=== PATIENT | female | born 1965 | race Two or more races ===

== ENCOUNTER 2025-06-02 16:44 | Emergency (ER) | payer OTHER ==
[~2025-06-02] VITALS: Ht 162.6 cm; Wt 68.2 kg
--- NOTE | 2025-06-02 16:51 | ECG ---
[facility] Test Date: 2025-06-02 Test Time: 16:50:18 Pat Name: ALEXANDRE LINDSYA Department: [facility] ED Patient ID: [id number] Room: Gender: F [employer] Specialist: MR MANNINGB: 1965 Requested By: FARIDEH MOTLEY Order Number: [id number] Reading MD: Joe Taylor Measurements Intervals Whitt Rate: 93 P: 47 WY: 126 QRS: 66 QRSD: 96 T: 42 QT: 363 QTc: 452 Interpretive Statements Sinus rhythm Low voltage, precordial leads RSR' in V1 or V2, right VCD or RVH Electronically Signed On 06-04-2025 15:03:06 PST by Joe Taylor Please click the below link to view image of tracing.
[2025-06-02 17:02] LABS: Hematocrit 49.1 % (36.0-46.0); Hemoglobin 16.6 g/dL (12.2-16.2); Mean Corpuscular Hemoglobin 33.5 pg (28.0-32.0); Mean Corpuscular Volume 98.9 fL (80.0-100.0); Nucleated Red Blood Cells % 0.1 %
[2025-06-02 17:09] LABS: Potassium 3.7 mmol/L (3.5-5.1); Sodium 141 mmol/L (136-145)
[2025-06-02 17:10] LABS: Anion Gap 12 (5-15); Calcium 10.1 mg/dL (8.7-10.4); Carbon Dioxide 22 mmol/L (20-31)
[2025-06-02 17:14] LABS: Chloride 107 mmol/L (98-107)
[2025-06-02 17:15] LABS: BUN/Creatinine Ratio 15.0 (10.0-20.0); Blood Urea Nitrogen 12 mg/dL (9-23)
[2025-06-02 17:20] LABS: Glucose 113 mg/dL (74-106)
--- NOTE | 2025-06-02 17:21 | DVH ---
CHEST RADIOGRAPH Indication: CP Technique: Single frontal view of the chest was obtained Comparison: None FINDINGS: Lines and Tubes: None Lungs: No focal consolidation. Pleura: No effusion. No pneumothorax. Cardiomediastinal contours: Unremarkable Bones: No acute osseous abnormality. IMPRESSION: No acute cardiopulmonary disease.
[2025-06-02 19:08] LABS: Alanine Aminotransferase 21 U/L (7-40); Alkaline Phosphatase 90 U/L (46-116); Anion Gap 11 (5-15); BUN/Creatinine Ratio 17.9 (10.0-20.0); Bilirubin, Total 0.8 mg/dL (0.2-1.0); Blood Urea Nitrogen 15 mg/dL (9-23); Calcium 10.2 mg/dL (8.7-10.4); Carbon Dioxide 24 mmol/L (20-31); Glucose 92 mg/dL (74-106); Potassium 3.8 mmol/L (3.5-5.1); Sodium 144 mmol/L (136-145); Total Protein 7.9 g/dL (5.7-8.2)
[2025-06-02 19:20] LABS: Albumin 5.1 g/dL (3.2-4.8); Chloride 109 mmol/L (98-107)
--- NOTE | 2025-06-02 19:38 | ED.PDOC ---
History of Present Illness HPI Comments 59-year-old female presents with spouse for chief complaint of hypertension. Patient endorses on her blood pressure being elevated all day, today. Significant history for hypertension, but patient reports on not having medications for over the past 6 months after being weaned off by her PCP, due to previous episodes of hypotension. Blood pressure upon arrival to ED triage was 192/122. Patient reports associated headache and shortness of breath. Denies any chest pain or further acute symptoms. She also reports on having recent life stressors, currently. Chief Complaint: High Blood Pressure Time Seen by MD: 18:30 Reviewed Notes: Nurses Notes Allergies: Uncoded Allergies: DILAUDID (Allergy, Unknown, 06/02/25) VICODINE (Allergy, Unknown, 06/02/25) Home Meds Active Scripts Amlodipine Besylate (Amlodipine Besylate) 5 Mg Tab, 1 TAB PO DAILY, #90 TAB 3 Refills Prov:TROY REYNOLDS MD 06/02/25 Information Source: Patient Mode of Arrival: Ambulatory Severity: Moderate Timing: Hours Duration: Since onset Prehospital treatment: None Past Medical History PAST MEDICAL HISTORY: HTN (Unmedicated) Surgical History: Denies all surgeries ARBORIST REPRESENTATIVE History: Denies all ARBORIST REPRESENTATIVE Hx Family History Family History: Unknown Social History Smoker: Non-Smoker Alcohol: Denies ETOH Use Drugs: Denies Drug Use Lives In: Home All Other Systems: Reviewed and Negative (Comprehensive review of systems are negative unless otherwise stated in HPI) Physical Exam General Appearance: No Apparent Distress, Normal HEENT: Normal ENT Inspection, Pharynx Normal, TMs Normal Neck: Full Range of Motion, Non-Tender, Normal, Normal Inspection Respiratory: Chest Non-Tender, Lungs Clear, No Accessory Muscle Use, No Respiratory Distress, Normal Breath Sounds Cardiovascular: No Edema, No JVD, No Murmur, No Gallop, Normal Peripheral Pulses, Regular Rate/Rhythm Breast Exam: Deferred Gastrointestinal: No Organomegaly, Non Tender, No Pulsatile Mass, Normal Bowel Sounds, Soft Genitalia: Deferred Pelvic: Deferred Rectal: Deferred Extremities: No calf tenderness, Normal capillary refill, Normal inspection, Normal range of motion, Non-tender, No pedal edema Musculoskeletal : Apperance: Normal Neurologic: Alert, embroidery cutter II-XII nml as Tested, No Motor Deficits, Normal Affect, Normal Mood, No Sensory Deficits Cerebellar Function: Normal Reflexes: Normal Skin: Dry, Normal Color, Warm Lymphatic: No Adenopathy Was a procedure done? Was a procedure done?: No EKG EKG : Pulse Rate (adult): 93 [place]: Normal Cardiac Rhythm: NSR Block: None Hypertrophy: None ST: Normal Differential Dx Considerations may include: Hypertensive emergency, medication noncompliance, dehydration, electrolyte imbalance, among others X-Ray, Labs, Meds, VS Vital Signs Date Time Temp Pulse Resp B/P (MAP) Pulse Ox O2 Delivery O2 Flow Rate FiO2 06/02/25 20:06 97.8 76 16 118/76 (90) 97 97.8 06/02/25 20:06 76 16 97 Room Air 06/02/25 19:38 93 06/02/25 19:00 117/89 06/02/25 18:27 118/76 06/02/25 17:27 175/98 06/02/25 16:50 98.5 104 18 192/122 96 98.5 Lab Test 06/02/25 19:45 06/02/25 18:05 06/02/25 16:55 Range/Units Troponin I High Sensitivity 8 5 4 </=34 ng/L Sodium Level 144 141 136-145 mmol/L Potassium Level 3.8 3.7 3.5-5.1 mmol/L Chloride Level 109 H 107 98-107 mmol/L Carbon Dioxide Level 24 22 20-31 mmol/L Anion Gap 11 12 5-15 Blood Urea Nitrogen 15 12 9-23 mg/dL Creatinine 0.84 0.80 0.550-1.02 mg/dL Glomerular Filtration Rate Calc 81 86 >90 mL/min BUN/Creatinine Ratio 17.9 15.0 10.0-20.0 Serum Glucose 92 113 H 74-106 mg/dL Calcium Level 10.2 10.1 8.7-10.4 mg/dL Total Bilirubin 0.8 0.2-1.0 mg/dL Aspartate Amino Transferase (AST) 29 13-40 U/L Alanine Aminotransferase (ALT) 21 7-40 U/L Alkaline Phosphatase 90 46-116 U/L Total Protein 7.9 5.7-8.2 g/dL Albumin 5.1 H 3.2-4.8 g/dL White Blood Count 10.5 4.4-10.8 10^3/uL Red Blood Count 4.96 4.0-5.20 10^6/uL Hemoglobin 16.6 H 12.2-16.2 g/dL Hematocrit 49.1 H 36.0-46.0 % Mean Corpuscular Volume 98.9 80.0-100.0 fL Mean Corpuscular Hemoglobin 33.5 H 28.0-32.0 pg Mean Corpuscular Hemoglobin Concent 33.9 32.0-36.0 g/dL Red Cell Distribution Width 13.5 11.8-14.3 % Platelet Count 207 140-450 10^3/uL Mean Platelet Volume 9.1 6.9-10.8 fL Neutrophils (%) (Auto) 49.8 37.0-80.0 % Lymphocytes (%) (Auto) 42.0 10.0-50.0 % Monocytes (%) (Auto) 6.1 0.0-12.0 % Eosinophils (%) (Auto) 1.1 0.0-7.0 % Basophils (%) (Auto) 1.0 0.0-2.0 % Neutrophils # (Auto) 5.2 1.6-8.6 10 ^3/uL Lymphocytes # (Auto) 4.4 0.4-5.4 10 ^3/uL Monocytes # (Auto) 0.6 0-1.3 10 ^3/uL Eosinophils # (Auto) 0.1 0-0.8 10 ^3/uL Basophils # (Auto) 0.1 0-0.2 10 ^3/uL Nucleated Red Blood Cells 0.1 % Current Medications Medications (Trade) Dose Ordered Sig/Christian Route Start Time Stop Time Status Last Admin Clonidine HCl (Catapres Tablet) 0.2 mg ONCE ONCE PO 06/02/25 17:00 06/02/25 17:01 DC 06/02/25 17:27 Time of 1ST Reevaluation: 19:00 Reevaluation 1ST: Unchanged Patient Education/Counseling: Diagnosis, Treatment, Need For Follow Up Family Education/Counseling: Diagnosis, Treatment, Need For Follow Up SEPSIS Sepsis Screen Date sepsis recognized/suspect: Jun 02, 2025 Time Sepsis recognized/suspect: 1500 Recent Procedure: No On Antibiotic Therapy: No Respiratory Rate >20: No Heart Rate >90: No Temp<36 C (96.8 F) or >38.3 C: No SBP <90 or MAP <65 mmHG: No New Acute Mental Status Change: No Is the patient on CPAP, BIPAP,: No Physician Orders Electrocardigram (06/02/25 17:46) Electrocardigram (06/02/25 19:46) Chest Xray 1 View (06/02/25 16:46) Vital Signs Date Time Temp Pulse Resp B/P (MAP) Pulse Ox O2 Delivery O2 Flow Rate FiO2 06/02/25 20:06 97.8 76 16 118/76 (90) 97 97.8 06/02/25 20:06 76 16 97 Room Air 06/02/25 19:38 93 06/02/25 19:00 117/89 06/02/25 18:27 118/76 06/02/25 17:27 175/98 06/02/25 16:50 98.5 104 18 192/122 96 98.5 Laboratory Tests Test 06/02/25 16:55 White Blood Count 10.5 10^3/uL (4.4-10.8) Medications Medications Dose Ordered Sig/Christian Route Start Time Stop Time Status Last Admin Dose Admin Clonidine HCl 0.2 mg ONCE ONCE PO 06/02/25 17:00 06/02/25 17:01 DC 06/02/25 17:27 Departure 1 Departure Time of Disposition: 21:00 Impression: Primary Impression: Chest tightness Additional Impression: Hypertension Disposition: HOME / SELF CARE / HOMELESS Condition: Stable e-Prescriptions Amlodipine Besylate (Amlodipine Besylate) 5 Mg Tab 1 TAB PO DAILY, #90 TAB 3 Refills Prov: TROY REYNOLDS MD 06/02/25 Discharged With: Spouse Critical Care Note Critical Care Time?: No Stability Stability form required: No Heart Score Heart Score: Heart Score Response (Comments) Value History Slightly Suspicious 0 EKG Normal 0 Age 45-64 1 Risk Factors 1 or 2 risk factors 1 Troponin Normal limit 0 Total 2 I personally scribed for TROY REYNOLDS MD ([email or web address]) on 06/02/25 at 19:38. Electronically submitted by Delmar Marie [email or web address]). TROY REYNOLDS MD Jun 02, 2025 19:38
[2025-06-02 20:06] VITALS: BP 118/76; PULSE 76; RESP 16; TEMP 97.8; O2SAT 97
[2025-06-02] MEDS ORDERED: AMLO1TAB22 PO (20:19)
== END 2025-06-02 20:53 | disposition home or self-care (01) ==
LOC: ER 16:44
DX: R07.89 Other chest pain (principal); I10 Essential (primary) hypertension; Z88.5 Allergy status to narcotic agent; Z79.899 Other long term (current) drug therapy
CPT/HCPCS: 36415; 71045; 80048; 80053; 84484; 85025; 93005